=== PATIENT | female | born 1960 | race Two or more races ===

== ENCOUNTER → 2017-07-27 | Outpatient (CLI) | payer BC ==
[~2017-07-27] MED LIST: AMPI250C3 PO; IBUP-1222 PO
== END ==
LOC: STAR 15:02
PROVIDERS: ATTEND Obstetrics & Gynecology Female Pelvic Medicine and Reconstructive Surgery
DX: Z02.9 Encounter for administrative examinations, unspecified (principal)

== ENCOUNTER 2017-08-03 05:58 | Day surgery (SDC) | payer BC ==
[~2017-08-03] VITALS: Ht 152.4 cm; Wt 85.0 kg
[2017-08-03] MEDS ORDERED: LACTATED RINGERS 1,000 ML IV SCH (06:38)
[2017-08-03] MEDS ORDERED: EPINEPHRINE 1 MG/ML, 1ML ONE (06:47)
[2017-08-03] MEDS ORDERED: NEOMY/POLYMYXIN B GU IRR. 1 ML IRRIG ONE (06:47)
[2017-08-03] MEDS ORDERED: BUPIVACAINE/PF 0.25% ONE (06:47)
[2017-08-03] MEDS ORDERED: LIDOCAINE-MPF 1%, 2ML INFIL ONE (07:00)
[2017-08-03] MEDS ORDERED: FENTANYL PF 100 MCG/2ML ONE ×2 (07:26→08:07)
[2017-08-03] MEDS ORDERED: MIDAZOLAM 1 MG/ML, 2ML ONE ×2 (07:26→09:20)
[2017-08-03] MEDS ORDERED: NEOSTIGMINE 1 MG/ML, 10ML ONE (07:26)
[2017-08-03] MEDS ORDERED: CEFAZOLIN 1,000 MG ONE (07:26)
[2017-08-03] MEDS ORDERED: GLYCOPYRROLATE 0.2MG/1ML, 5ML ONE (07:26)
[2017-08-03] MEDS ORDERED: LIDOCAINE GEL 2%, 5ML ONE ×2 (07:31)
[2017-08-03] MEDS ORDERED: ONDANSETRON 2MG/ML, 2ML ONE (07:43)
[2017-08-03] MEDS ORDERED: METOCLOPRAMIDE 5 MG/ML, 2ML ONE (07:43)
[2017-08-03] MEDS ORDERED: DEXAMETHASONE 4 MG/ML, 1ML ONE (07:43)
[2017-08-03] MEDS ORDERED: EPHEDRINE 50 MG/ML, 1ML ONE (07:45)
[2017-08-03] MEDS ORDERED: PHENYLEPHRINE 10 MG/ML ONE (07:45)
[2017-08-03] MEDS ORDERED: WATER-INJECTION,STERILE 10 ML IV ONE (07:45)
[2017-08-03] MEDS ORDERED: ROCURONIUM 10MG/ML,5ML ONE (07:49)
[2017-08-03] MEDS ORDERED: PROPOFOL 10 MG/ML, 20ML ONE (07:54)
[2017-08-03] MEDS ORDERED: LABETALOL 5MG/ML, 20ML IV PRN (08:30)
[2017-08-03] MEDS ORDERED: OXYcodone 5 MG/5 ML ORAL.SOL UDC PO PRN (08:30)
[2017-08-03] MEDS ORDERED: HYDROmorphone 1 MG/ML, 1ML IV PRN (08:30)
[2017-08-03] MEDS ORDERED: FENTANYL PF 100 MCG/2ML IV PRN (08:30)
[2017-08-03] MEDS ORDERED: MIDAZOLAM 1 MG/ML, 2ML IV PRN (08:30)
[2017-08-03] MEDS ORDERED: MEPERIDINE/PF 25MG/0.5ML IVPush PRN (08:30)
[2017-08-03] MEDS ORDERED: ONDANSETRON 2MG/ML, 2ML IVPush PRN ×2 (08:30→13:00)
[2017-08-03] MEDS ORDERED: KETOROLAC 30 MG/1 ML ONE (09:20)
[2017-08-03] MEDS ORDERED: OXYcodone 5 MG/5 ML ORAL.SOL UDC ONE (09:20)
[2017-08-03] MEDS ORDERED: MEPERIDINE/PF 50 MG/ML ONE (09:36)
[2017-08-03] MEDS ORDERED: IBUPROFEN 600 MG TABLET PO PRN (13:00)
[2017-08-03] MEDS ORDERED: OXYcodone/APAP 5/325MG TABLET PO PRN (13:00)
[2017-08-03] MEDS ORDERED: KETOROLAC 30 MG/1 ML IVPush PRN ×2 (13:00→13:02)
[2017-08-03] MEDS ORDERED: HYDROcodone/APAP 5/325 TABLET PO PRN (13:00)
[2017-08-03] MEDS ORDERED: HYDROmorphone 2 MG/ML, 1ML IVPush PRN (13:00)
== END 2017-08-03 17:23 ==
LOC: OUT 05:58
PROVIDERS: ATTEND Obstetrics & Gynecology Female Pelvic Medicine and Reconstructive Surgery
DX: D25.2 Subserosal leiomyoma of uterus (principal); N81.4 Uterovaginal prolapse, unspecified; N39.3 Stress incontinence (female) (male); N81.10 Cystocele, unspecified; N85.8 Other specified noninflammatory disorders of uterus; N81.5 Vaginal enterocele; Z79.2 Long term (current) use of antibiotics; Z79.899 Other long term (current) drug therapy; Z98.890 Other specified postprocedural states; Z83.3 Family history of diabetes mellitus; Z82.49 Family history of ischemic heart disease and other diseases of the circulatory system
CPT/HCPCS: 57265; 57282; 57288; 58552; 88307; 94640; C1771; J0171; J0690; J1100; J2175; J2250; J2370; J2405; J2704; J2710; J2765; J3010; J3490; J7120; 88305

== ENCOUNTER 2020-03-19 18:25 | Inpatient (IN) | payer BC ==
[~2020-03-19] VITALS: Ht 152.4 cm; Wt 83.3 kg
[2020-03-19] MEDS ORDERED: SODIUM CHLORIDE 0.9% 1,000 ML IV ONE (19:00)
[2020-03-19] MEDS ORDERED: SODIUM CHLORIDE FLUSH 10ML SYR IVF ONE (19:00)
[2020-03-19] MEDS ORDERED: ONDANSETRON 2MG/ML, 2ML IVPush ONE (19:00)
[2020-03-19] MEDS ORDERED: SODIUM CHLORIDE 0.9% 1,000ML IVBOLUS ONE ×2 (19:00→22:00)
[2020-03-19] MEDS ORDERED: ONDANSETRON 2MG/ML, 2ML ONE (19:15)
[2020-03-19 19:24] LABS: MEAN CORPUSCULAR HEMOGLOBIN 28.3 pg (27.0-34.8); MEAN CORPUSCULAR HGB CONC 33.9 g/dL (32.4-35.8); MEAN PLATELET VOLUME 6.8 fL (7.4-10.4); PLATELET COUNT 216 x10^3/uL (130-400); RED CELL DISTRIBUTION WIDTH 14.3 % (9.6-15.2)
[2020-03-19 19:35] LABS: ALANINE AMINOTRANSFERASE 26 U/L (12-78); ALBUMIN 3.2 g/dL (3.4-5.0); ANION GAP 10 mmol/L (5-15); CALCIUM 8.6 mg/dL (8.5-10.1); CHLORIDE 107 mmol/L (98-107)
[2020-03-19 19:37] LABS: ALKALINE PHOSPHATASE 125 U/L (45-117); BILIRUBIN,TOTAL 1.5 mg/dL (0.2-1.0); TOTAL PROTEIN 7.3 g/dL (6.4-8.2)
[2020-03-19 19:39] LABS: MD YES
--- NOTE | 2020-03-19 19:44 | NUR ---
PT BIBA. PER EMS PT HAS N/V/D AND ABD PAIN. EMS ALSO REPORTS FEVER OF 103.5F. TEMP CURRENTLY 100.7. PT RESTING IN GURNEY, AT BEDSIDE, MONITORING IN PLACE, EKG DONE, PT MEDICATED PER KIRSTY BARBOZA AT THIS TIME, WCTM.
--- NOTE | 2020-03-19 19:45 | NUR ---
PT ALSO REPORTS BEING COVID POSITIVE IN NOVEMBER.
[2020-03-19 19:49] LABS: <PLATELET ESTIMATE> ADEQUATE; <PLT MORPHOLOGY> NORMAL PLT MORPH; <RBC MORPHOLOGY> NORMAL; BAND#(MANUAL) 3.57 x10^3/uL; BANDS%(MANUAL) 35 % (0-7); LYMPH#(MANUAL) 0.51 x10^3/uL (1-3.4); LYMPHS% (MANUAL) 5 % (22-44); MONOS% (MANUAL) 2 % (2-9); SEG#(MANUAL) 5.92 x10^3/uL (1.8-6.8); SEGS% (MANUAL) 58 % (42-75)
[2020-03-19] MEDS ORDERED: OMNIPAQUE 350 MG/ML, 100ML BOTTLE ONE (20:59)
[2020-03-19] MEDS ORDERED: AZITHROMYCIN 500 MG in SODIUM CHLORIDE 0.9% 250 ML IVPB ONE (21:30)
[2020-03-19] MEDS ORDERED: SODIUM CHLORIDE FLUSH 10ML SYR IVF PRN (21:30)
[2020-03-19] MEDS ORDERED: CEFTRIAXONE PMX 1GM/50ML 50 ML IVPB ONE (21:30)
[2020-03-19] MEDS ORDERED: CEFTRIAXONE PMX 1GM/50ML 50 ML ONE (21:32)
--- NOTE | 2020-03-19 21:44 | NUR ---
PT'S BP 89/48, DR. UP AWARE, NEW ORDER FOR SECOND BOLUS NS, BOLUS INFUSING. PT REPORT NO NEW SYMPTOMS, NADN AT THIS TIME, MONITORING IN PLACE.
[2020-03-19] MEDS ORDERED: hydrALAzine 20 MG/ML, 1ML IVPush PRN (22:00)
[2020-03-19] MEDS ORDERED: DOCUSATE 100 MG CAPSULE PO PRN (22:00)
[2020-03-19] MEDS ORDERED: IBUPROFEN 600 MG TABLET PO PRN (22:00)
[2020-03-19] MEDS ORDERED: GUAIFENESIN/DM 200-20MG, 10ML UDC PO PRN (22:00)
[2020-03-19 22:48] VITALS: BP 105/69
[2020-03-19 22:51] LABS: MICROSCOPIC INDICATED
[2020-03-19] MEDS: HEPARIN 5,000 UNITS/ML, 1ML SQ SCH (23:20)
[2020-03-20 00:15] LABS: FREE T4 (FREE THYROXINE) 1.46 ng/dL (0.76-1.46)
[2020-03-20] MEDS: NS + 20MEQ KCL 1,000 ML IV SCH ×2 (01:43→06:23)
[2020-03-20 01:48] VITALS: BP 92/60
[2020-03-20 05:24] LABS: BASOPHILS % (AUTO) 0 % (0-1); EOSINOPHILS % (AUTO) 0 % (1-7); LYMPHOCYTES % (AUTO) 6 % (22-44); MEAN CORPUSCULAR HEMOGLOBIN 27.6 pg (27.0-34.8); MEAN CORPUSCULAR HGB CONC 32.4 g/dL (32.4-35.8); MONOCYTES % (AUTO) 3 % (2-9); NEUTROPHILS % (AUTO) 91 % (42-75); PLATELET COUNT 193 x10^3/uL (130-400); RED CELL DISTRIBUTION WIDTH 14.7 % (9.6-15.2)
[2020-03-20 05:26] LABS: MD NO
[2020-03-20 05:39] LABS: ANION GAP 6 mmol/L (5-15); CALCIUM 7.6 mg/dL (8.5-10.1); CHLORIDE 111 mmol/L (98-107)
[2020-03-20 06:21] VITALS: BP 95/64
[2020-03-20] MEDS: INSULIN LISPRO 100 UNITS/ML, PEN SQ-INSULIN SCH ×4 (07:00→20:47)
[2020-03-20] MEDS: AZITHROMYCIN 500 MG TABLET PO SCH (07:35)
[2020-03-20] MEDS: HEPARIN 5,000 UNITS/ML, 1ML SQ SCH (07:36)
[2020-03-20 08:12] VITALS: BP 96/61
[2020-03-20] MEDS: ENOXAPARIN 40 MG/0.4 ML SQ SCH (09:00)
[2020-03-20 12:26] VITALS: BP 96/58
[2020-03-20] MEDS: LACTATED RINGERS 1,000 ML IV SCH ×2 (14:29→20:54)
[2020-03-20] MEDS ORDERED: MAGNESIUM SULFATE PMX 4GM/100M 100 ML IVPB ONE (14:30)
[2020-03-20] MEDS: LACTOBACILLUS CHEW TABLET PO SCH ×2 (15:09→20:54)
[2020-03-20] MEDS: PIPERACILLIN/TAZO/PMX 3.375GM 50 ML IV SCH ×2 (15:09→20:54)
[2020-03-20 16:16] VITALS: BP 100/66
[2020-03-20] MEDS: ACETAMINOPHEN 325 MG TABLET PO PRN (17:02)
[2020-03-20 19:06] VITALS: BP 95/64
[2020-03-20] MEDS ORDERED: CEFTRIAXONE PMX 1GM/50ML 50 ML IV SCH (21:30)
[2020-03-21 00:41] VITALS: BP 97/62
[2020-03-21] MEDS: ONDANSETRON 2MG/ML, 2ML IVPush PRN ×2 (00:49→20:30)
[2020-03-21] MEDS: ACETAMINOPHEN 325 MG TABLET PO PRN ×2 (00:49→20:54)
[2020-03-21] MEDS: PIPERACILLIN/TAZO/PMX 3.375GM 50 ML IV SCH ×4 (03:03→22:33)
[2020-03-21] MEDS: LACTATED RINGERS 1,000 ML IV SCH ×3 (04:00→18:38)
[2020-03-21 04:07] VITALS: BP 99/65
[2020-03-21] MEDS: LACTOBACILLUS CHEW TABLET PO SCH ×4 (05:27→20:54)
[2020-03-21 05:45] LABS: BASOPHILS % (AUTO) 0 % (0-1); EOSINOPHILS % (AUTO) 1 % (1-7); LYMPHOCYTES % (AUTO) 12 % (22-44); MEAN CORPUSCULAR HEMOGLOBIN 28.2 pg (27.0-34.8); MEAN CORPUSCULAR HGB CONC 32.9 g/dL (32.4-35.8); MEAN PLATELET VOLUME 7.1 fL (7.4-10.4); MONOCYTES % (AUTO) 4 % (2-9); NEUTROPHILS % (AUTO) 83 % (42-75); PLATELET COUNT 129 x10^3/uL (130-400); RED BLOOD COUNT 3.92 x10^6/uL (3.82-5.3); RED CELL DISTRIBUTION WIDTH 14.8 % (9.6-15.2)
[2020-03-21 05:47] LABS: ALANINE AMINOTRANSFERASE 25 U/L (12-78); ALBUMIN 2.3 g/dL (3.4-5.0); ANION GAP 5 mmol/L (5-15); CALCIUM 7.7 mg/dL (8.5-10.1); CHLORIDE 111 mmol/L (98-107); CREATININE 0.43 mg/dL (0.55-1.02)
[2020-03-21 05:48] LABS: MD NO
[2020-03-21 05:50] LABS: ALKALINE PHOSPHATASE 120 U/L (45-117); BILIRUBIN,TOTAL 0.7 mg/dL (0.2-1.0); TOTAL PROTEIN 5.8 g/dL (6.4-8.2)
[2020-03-21] MEDS: INSULIN LISPRO 100 UNITS/ML, PEN SQ-INSULIN SCH ×4 (07:40→20:57)
[2020-03-21 08:06] VITALS: BP 97/62
[2020-03-21] MEDS: AZITHROMYCIN 500 MG TABLET PO SCH (10:09)
[2020-03-21] MEDS: MAGNESIUM OXIDE 400 MG TABLET PO SCH (10:09)
[2020-03-21] MEDS: ENOXAPARIN 40 MG/0.4 ML SQ SCH (10:09)
[2020-03-21 12:05] VITALS: BP 111/74
[2020-03-21 14:16] VITALS: BP 94/62
[2020-03-21 21:05] VITALS: BP 131/84
[2020-03-22 01:10] VITALS: BP 106/70
[2020-03-22] MEDS: LACTATED RINGERS 1,000 ML IV SCH (03:15)
[2020-03-22] MEDS: PIPERACILLIN/TAZO/PMX 3.375GM 50 ML IV SCH ×4 (04:07→22:03)
[2020-03-22] MEDS: LACTOBACILLUS CHEW TABLET PO SCH ×4 (06:05→20:13)
[2020-03-22 06:50] LABS: BASOPHILS % (AUTO) 1 % (0-1); EOSINOPHILS % (AUTO) 4 % (1-7); LYMPHOCYTES % (AUTO) 29 % (22-44); MEAN CORPUSCULAR HGB CONC 33.1 g/dL (32.4-35.8); MEAN PLATELET VOLUME 7.4 fL (7.4-10.4); MONOCYTES % (AUTO) 8 % (2-9); NEUTROPHILS % (AUTO) 59 % (42-75); PLATELET COUNT 139 x10^3/uL (130-400); RED BLOOD COUNT 4.01 x10^6/uL (3.82-5.3); RED CELL DISTRIBUTION WIDTH 14.5 % (9.6-15.2)
[2020-03-22 06:51] LABS: MD NO
[2020-03-22 07:00] LABS: ANION GAP 6 mmol/L (5-15); CHLORIDE 107 mmol/L (98-107)
[2020-03-22] MEDS: INSULIN LISPRO 100 UNITS/ML, PEN SQ-INSULIN SCH ×4 (07:00→20:13)
[2020-03-22 07:01] LABS: CREATININE 0.53 mg/dL (0.55-1.02)
[2020-03-22 07:19] VITALS: BP 123/80
[2020-03-22] MEDS: MAGNESIUM OXIDE 400 MG TABLET PO SCH (09:21)
[2020-03-22] MEDS: ENOXAPARIN 40 MG/0.4 ML SQ SCH (09:21)
[2020-03-22] MEDS: AZITHROMYCIN 500 MG TABLET PO SCH (09:21)
[2020-03-22 12:27] LABS: ALBUMIN 2.4 g/dL (3.4-5.0); BILIRUBIN, DIRECT 0.3 mg/dL (0.1-0.2)
[2020-03-22 12:29] LABS: BILIRUBIN,INDIRECT 0.5 mg/dL (0.0-2.0); BILIRUBIN,TOTAL 0.8 mg/dL (0.2-1.0)
[2020-03-22 15:08] VITALS: BP 131/83
[2020-03-22 18:52] VITALS: BP 113/74
[2020-03-23 00:42] VITALS: BP 110/64
[2020-03-23] MEDS: LACTOBACILLUS CHEW TABLET PO SCH ×3 (04:30→16:43)
[2020-03-23] MEDS: PIPERACILLIN/TAZO/PMX 3.375GM 50 ML IV SCH ×3 (04:30→16:33)
[2020-03-23 05:13] LABS: BASOPHILS % (AUTO) 0 % (0-1); EOSINOPHILS % (AUTO) 4 % (1-7); LYMPHOCYTES % (AUTO) 34 % (22-44); MEAN CORPUSCULAR HEMOGLOBIN 28.1 pg (27.0-34.8); MEAN CORPUSCULAR HGB CONC 33.6 g/dL (32.4-35.8); MEAN PLATELET VOLUME 7.2 fL (7.4-10.4); MONOCYTES % (AUTO) 9 % (2-9); NEUTROPHILS % (AUTO) 52 % (42-75); PLATELET COUNT 170 x10^3/uL (130-400); RED BLOOD COUNT 4.04 x10^6/uL (3.82-5.3); RED CELL DISTRIBUTION WIDTH 14.4 % (9.6-15.2)
[2020-03-23 05:15] LABS: MD NO
[2020-03-23 05:30] LABS: ALBUMIN 2.4 g/dL (3.4-5.0); ANION GAP 5 mmol/L (5-15); CALCIUM 8.2 mg/dL (8.5-10.1); CHLORIDE 109 mmol/L (98-107)
[2020-03-23 05:36] LABS: ALANINE AMINOTRANSFERASE 68 U/L (12-78); ALKALINE PHOSPHATASE 188 U/L (45-117); BILIRUBIN,TOTAL 0.8 mg/dL (0.2-1.0); CREATININE 0.51 mg/dL (0.55-1.02)
[2020-03-23] MEDS: INSULIN LISPRO 100 UNITS/ML, PEN SQ-INSULIN SCH ×3 (07:00→16:15)
[2020-03-23 07:09] VITALS: BP 119/72
[2020-03-23] MEDS: AZITHROMYCIN 500 MG TABLET PO SCH (08:38)
[2020-03-23] MEDS: MAGNESIUM OXIDE 400 MG TABLET PO SCH (08:38)
[2020-03-23] MEDS: ENOXAPARIN 40 MG/0.4 ML SQ SCH (08:39)
[2020-03-23 13:09] VITALS: BP 125/68
[2020-03-23] MEDS ORDERED: SULF1TAB24 PO (15:20)
== END 2020-03-23 18:17 | disposition home or self-care (01) | DRG 871 ==
LOC: ED 20:40 → EDIP 21:49 → 3N 22:48
PROVIDERS: ADMIT Family Medicine; ATTEND Family Medicine
DX: A41.51 Sepsis due to Escherichia coli [E. coli] (principal); J15.9 Unspecified bacterial pneumonia; J96.01 Acute respiratory failure with hypoxia; E87.2 Acidosis; D63.8 Anemia in other chronic diseases classified elsewhere; E11.65 Type 2 diabetes mellitus with hyperglycemia; E83.42 Hypomagnesemia; E87.6 Hypokalemia; E88.09 Other disorders of plasma-protein metabolism, not elsewhere classified; J98.4 Other disorders of lung; K52.9 Noninfective gastroenteritis and colitis, unspecified; Z86.16 Personal history of COVID-19; Z79.899 Other long term (current) drug therapy
CPT/HCPCS: 36415; 71045; 71250; 74177; 76705; 80048; 80053; 80076; 81001; 82962; 83605; 83690; 83735; 84145; 84439; 84443; 85025; 87040; 87077; 87086; 87186; 93005; 93306; 96361; 96374; 96375; 99285; G0378; J0456; J0696; J1644; J1650; J2405; J2543; J3480; Q9967; J1815; J3475; J7030; J7050; J7120